=== PATIENT | female | born 1960 | race Two or more races ===

== ENCOUNTER → 2017-10-08 11:22 | Outpatient (CLI) | payer OTHER | END | disposition home or self-care (01) | LOC: LAB 11:22 | DX: E56.1 Deficiency of vitamin K (principal) ==

== ENCOUNTER 2020-12-06 17:05 | Outpatient (CLI) | payer OTHER | END 2020-12-06 17:16 | disposition home or self-care (01) | LOC: RAD 17:05 | PROVIDERS: ATTEND Orthopaedic Surgery | DX: M25.572 Pain in left ankle and joints of left foot (principal) ==

== ENCOUNTER 2020-12-07 15:18 | Outpatient (CLI) | payer OTHER | END 2020-12-07 15:34 | disposition home or self-care (01) | LOC: TOM 15:18 | PROVIDERS: ATTEND Orthopaedic Surgery | DX: M79.672 Pain in left foot (principal) ==

== ENCOUNTER 2020-12-14 16:32 | Outpatient (CLI) | payer OTHER | END 2020-12-14 16:40 | disposition home or self-care (01) | LOC: RAD 16:32 | PROVIDERS: ATTEND Orthopaedic Surgery | DX: S92.252A Displaced fracture of navicular [scaphoid] of left foot, initial encounter for closed fracture (principal); M79.672 Pain in left foot ==

== ENCOUNTER 2020-12-20 16:44 | Outpatient (CLI) | payer OTHER | END 2020-12-20 16:49 | disposition home or self-care (01) | LOC: RAD 16:44 | PROVIDERS: ATTEND Orthopaedic Surgery | DX: S92.252A Displaced fracture of navicular [scaphoid] of left foot, initial encounter for closed fracture (principal) ==

== ENCOUNTER 2025-01-25 09:31 | Outpatient (CLI) | payer OTHER ==
[2025-01-25 10:50] LABS: BASO % 0.6 % (0.1-1.2); EOS # 0.07 (0.04-0.54); EOS % 1.4 % (0.7-7.0); HEMATOCRIT 46.5 % (34.1-44.9); HEMOGLOBIN 15.4 g/dL (11.2-15.7); LYMPH # 1.99 (1.18-3.74); LYMPH % 39.9 % (19.3-53.1); MEAN CORPUSCULAR HEMOGLOBIN 30.3 pg (25.6-32.2); MONO # 0.38 (0.24-0.82); MONO % 7.6 % (4.7-12.5); NEUT # 2.51 (1.56-6.13); NEUT % 50.3 % (34.0-71.1); PLATELET COUNT 214 K/uL (163-369); RED BLOOD COUNT 5.09 M/uL (3.93-5.22); RED CELL DISTRIBUTION WIDTH 12.3 % (11.6-14.4)
[2025-01-25 11:13] LABS: INR 0.99; PARTIAL THROMBOPLASTIN TIME 32.6 SECONDS (22.0-34.0); PROTHROMBIN TIME 10.8 SECONDS (9.0-11.5)
[2025-01-25 11:16] LABS: PH,URINE 7.5 (5.0-8.0); URINE APPEARANCE Cloudy; URINE BILIRRUBIN Negative (NEGATIVE); URINE BLOOD Negative; URINE COLOR Yellow; URINE GLUCOSE Negative (NEGATIVE); URINE KETONE Negative (NEGATIVE); URINE LEUKOCYTE Negative; URINE NITRATE Negative; URINE PROTEIN Negative (NEGATIVE); URINE UROBILINOGEN 0.2 E.U./dl
[2025-01-25 11:19] LABS: URINE BACTERIA 13.4 uL (0.0-1933); URINE RBC 2.7 uL (0.0-20.8)
[2025-01-25 11:25] LABS: COL EPI 81 SECONDS (82-175)
[2025-01-25 11:27] LABS: URINE EPITHELIAL CELLS 0.3 uL (0.0-38.8); URINE WBC 0.9 uL (0.0-23.2)
[2025-01-25 11:59] LABS: ALBUMIN 4.1 gm/dL (3.4-5.0); BILIRUBIN TOTAL 0.36 mg/dL (0.3-1.2); CALCIUM 9.5 mg/dL (8.5-10.1); CREATININE SERUM 1.09 mg/dL (0.55-1.02); GFR 50.86; GLOBULINA 3.6 G/DL (2.4-3.5); POTASSIUM 4.54 mEq/L (3.5-5.1); TOTAL PROTEIN 7.7 gm/dL (6.4-8.2)
== END 2025-01-25 09:32 | disposition home or self-care (01) ==
LOC: RAD 09:31
PROVIDERS: ATTEND Orthopaedic Surgery
DX: Z76.89 Persons encountering health services in other specified circumstances (principal); D64.9 Anemia, unspecified; D68.8 Other specified coagulation defects; N39.0 Urinary tract infection, site not specified; E11.8 Type 2 diabetes mellitus with unspecified complications; E88.9 Metabolic disorder, unspecified